=== PATIENT | female | born 1960 | race Two or more races ===

== ENCOUNTER 2019-08-01 18:31 | Emergency (ER) | payer MEDICAID, OTHER ==
[~2019-08-01] VITALS: Ht 165.1 cm; Wt 68.0 kg
[2019-08-01] MEDS ORDERED: PROMETHAZINE W/CODEINE 5 ML ORAL SYRUP PO ONE (19:45)
[2019-08-01] MEDS ORDERED: ALBUTEROL SULF 2.5 MG/0.5ML(0.5%) NEB SOLN NEB ONE (19:45)
[2019-08-01] MEDS ORDERED: IPRATROPIUM BROM 0.5 MG/2.5ML INH SOL NEB ONE (19:45)
[2019-08-01 20:28] LABS: Eosinophils # (auto) 0 uL; Lymphocytes # (auto) 1.3 uL; Monocytes # (auto) 0.8 uL; Neutrophils # (auto) 3.7 uL; Nucleated Red Blood Cells % 0.1 %; Red Cell Distribution Width 15.8 % (11.8-14.3); White Blood Cell 5.9 10^3/uL (4.4-10.8)
[2019-08-01 20:30] LABS: Basophils # (auto) 0 uL; Basophils % (auto) 0.8 % (0.0-2.0); Eosinophils % (auto) 0.3 % (0.0-7.0); Hematocrit 35.4 % (36.0-46.0); Hemoglobin 11.5 g/dL (12.2-16.2); Lymphocytes % (auto) 21.7 % (10.0-50.0); Mean Corpuscular Hgb Conc. 32.6 g/dL (32.0-36.0); Mean Corpuscular Volume 82.9 fL (80.0-100.0); Monocytes % (auto) 14.2 % (0.0-12.0); Platelet Count (auto) 397 10^3/uL (140-450); Red Blood Cells 4.27 10^6/uL (4.0-5.20)
[2019-08-01 20:47] LABS: Albumin 3.6 g/dL (3.4-5.0); Anion Gap 9 (5-15); Blood Urea Nitrogen 10 mg/dL (7-18); Calcium 8.7 mg/dL (8.5-10.1); Carbon Dioxide 24 mmol/L (21-32); Chloride 104 mmol/L (98-107); Glucose 111 mg/dL (74-106); Magnesium 2.2 mg/dL (1.6-2.6); Potassium 3.7 mmol/L (3.5-5.1); Sodium 137 mmol/L (136-145)
[2019-08-01 20:54] LABS: Alanine Aminotransferase 59 U/L (13-56); Alkaline Phosphatase 125 U/L (45-117); Aspartate Aminotransferase 56 U/L (15-37); BUN/Creatinine Ratio 10.8; Bilirubin, Total 0.2 mg/dL (0.2-1.0); GFR African American 79 mL/min; GFR Non-African American 65 mL/min
[2019-08-01 20:59] LABS: INR 1.06 (0.9-1.15); Partial Thromboplastin Time 32.3 sec (23.64-32.05)
[2019-08-01] MEDS ORDERED: ACETAMINOPHEN 500 MG TAB PO ONE (23:00)
[2019-08-01] MEDS ORDERED: ACETAMINOPHEN 325 MG TAB PO ONE (23:15)
[2019-08-02 01:00] VITALS: BP 105/52
== END 2019-08-02 01:07 | disposition home or self-care (01) ==
LOC: ER 18:31
DX: J21.9 Acute bronchiolitis, unspecified (principal)
CPT/HCPCS: 36415; 71045; 74176; 80053; 83735; 83880; 84484; 85025; 85610; 85730; 87804; 93005; 94640; 99285; J7611; J7644

== ENCOUNTER 2021-01-04 11:29 | Emergency (ER) | payer MEDICAID ==
[~2021-01-04] VITALS: Ht 165.1 cm; Wt 54.4 kg
[2021-01-04 13:03] LABS: Basophils # (auto) 0.1 10 ^3/uL (0-0.2); Basophils % (auto) 0.7 % (0.0-2.0); Eosinophils # (auto) 0.1 10 ^3/uL (0-0.8); Eosinophils % (auto) 1.4 % (0.0-7.0); Hematocrit 32.6 % (36.0-46.0); Hemoglobin 10.6 g/dL (12.2-16.2); Lymphocytes # (auto) 2.7 10 ^3/uL (0.4-5.4); Mean Corpuscular Hemoglobin 27.7 pg (28.0-32.0); Mean Corpuscular Hgb Conc. 32.4 g/dL (32.0-36.0); Mean Corpuscular Volume 85.6 fL (80.0-100.0); Monocytes # (auto) 0.6 10 ^3/uL (0-1.3); Monocytes % (auto) 6.1 % (0.0-12.0); Neutrophils # (auto) 5.6 10 ^3/uL (1.6-8.6); Neutrophils % (auto) 61.8 % (37.0-80.0); Red Blood Cells 3.81 10^6/uL (4.0-5.20); Red Cell Distribution Width 14.4 % (11.8-14.3); White Blood Cell 9.1 10^3/uL (4.4-10.8)
[2021-01-04 13:17] LABS: Blood Urea Nitrogen 20 mg/dL (7-18); Calcium 8.4 mg/dL (8.5-10.1); Chloride 112 mmol/L (98-107); Potassium 3.9 mmol/L (3.5-5.1); Sodium 140 mmol/L (136-145)
[2021-01-04 13:19] LABS: Alanine Aminotransferase 22 U/L (13-56); Albumin 3.7 g/dL (3.4-5.0); Anion Gap 5 (5-15); Aspartate Aminotransferase 17 U/L (15-37); BUN/Creatinine Ratio 21.1; Carbon Dioxide 23 mmol/L (21-32); GFR African American 77 mL/min; GFR Non-African American 63 mL/min; Glucose 103 mg/dL (74-106)
[2021-01-04 13:25] LABS: Alkaline Phosphatase 97 U/L (45-117); Bilirubin, Total 0.2 mg/dL (0.2-1.0); Total Protein 7.5 g/dL (6.4-8.2)
[2021-01-04 13:30] VITALS: BP 111/57
[2021-01-04] MEDS ORDERED: traMADol HCL 50 MG TAB PO ONE (13:30)
== END 2021-01-04 13:41 | disposition home or self-care (01) ==
LOC: ER 11:29
DX: S09.8XXA Other specified injuries of head, initial encounter (principal); R42 Dizziness and giddiness; E11.9 Type 2 diabetes mellitus without complications; E78.5 Hyperlipidemia, unspecified; I10 Essential (primary) hypertension; Z88.1 Allergy status to other antibiotic agents; Z87.442 Personal history of urinary calculi; Z90.89 Acquired absence of other organs; Z90.49 Acquired absence of other specified parts of digestive tract; Z98.890 Other specified postprocedural states; W18.39XA Other fall on same level, initial encounter; Y93.89 Activity, other specified; Y92.89 Other specified places as the place of occurrence of the external cause; Y99.8 Other external cause status
CPT/HCPCS: 36415; 70450; 80053; 84484; 85025; 93005

== ENCOUNTER 2021-11-17 17:02 | Emergency (ER) | payer MEDICAID ==
[~2021-11-17] VITALS: Ht 165.1 cm; Wt 63.5 kg
[2021-11-17 17:02] VITALS: BP 143/64
== END 2021-11-17 21:41 | disposition left against medical advice (07) ==
LOC: ER 17:02
DX: H92.09 Otalgia, unspecified ear (principal); R51.9 Headache, unspecified; Z53.21 Procedure and treatment not carried out due to patient leaving prior to being seen by health care provider

== ENCOUNTER 2022-05-16 10:27 | Emergency (ER) | payer MEDICAID ==
[~2022-05-16] VITALS: Ht 160 cm; Wt 67.9 kg
[2022-05-16 10:45] VITALS: BP 131/90
[2022-05-16 11:05] LABS: Eosinophils # (auto) 0.1 10 ^3/uL (0-0.8); Monocytes # (auto) 0.3 10 ^3/uL (0-1.3)
[2022-05-16 11:07] LABS: Basophils # (auto) 0.1 10 ^3/uL (0-0.2); Basophils % (auto) 0.7 % (0.0-2.0); Eosinophils % (auto) 0.7 % (0.0-7.0); Hematocrit 37.9 % (36.0-46.0); Hemoglobin 11.9 g/dL (12.2-16.2); Lymphocytes # (auto) 2.1 10 ^3/uL (0.4-5.4); Lymphocytes % (auto) 25.4 % (10.0-50.0); Mean Corpuscular Hemoglobin 25.4 pg (28.0-32.0); Mean Corpuscular Hgb Conc. 31.3 g/dL (32.0-36.0); Mean Corpuscular Volume 81.1 fL (80.0-100.0); Monocytes % (auto) 3.8 % (0.0-12.0); Neutrophils # (auto) 5.8 10 ^3/uL (1.6-8.6); Neutrophils % (auto) 69.4 % (37.0-80.0); Red Blood Cells 4.68 10^6/uL (4.0-5.20); Red Cell Distribution Width 17.1 % (11.8-14.3); White Blood Cell 8.3 10^3/uL (4.4-10.8)
[2022-05-16 11:15] LABS: Potassium 3.9 mmol/L (3.5-5.1)
[2022-05-16 11:19] LABS: Albumin 3.7 g/dL (3.4-5.0); BUN/Creatinine Ratio 15.5; Calcium 9.5 mg/dL (8.5-10.1)
[2022-05-16 11:22] LABS: Bilirubin, Total 0.3 mg/dL (0.2-1.0); Total Protein 8.1 g/dL (6.4-8.2)
[2022-05-16] MEDS ORDERED: ALUM & MAG HYDROX-SIMETH LIQ(MAALOX) 30 ML PO ONE (11:30)
[2022-05-16] MEDS ORDERED: LIDOCAINE VISCOUS 2% 15ML UD PO ONE (11:30)
[2022-05-16] MEDS ORDERED: DONNATAL 5ml ORAL Elix (BELLADONNA ALK-PHENOBARB) PO ONE (11:30)
[2022-05-16] MEDS ORDERED: PANT40TA2 PO (14:00)
== END 2022-05-16 19:50 | disposition home or self-care (01) ==
LOC: ER 10:32
DX: K29.70 Gastritis, unspecified, without bleeding (principal)
CPT/HCPCS: 36415; 71045; 74176; 80053; 83690; 84484; 85025; 93005